=== PATIENT | male | born 1980 | race Caucasian/White ===

== ENCOUNTER 2016-09-20 23:41 | Observation (INO) | payer BC ==
[2016-09-21] MEDS ORDERED: Pepcid 20 MG VIAL IV ONE ×2 (00:09→00:58)
[2016-09-21] MEDS ORDERED: BENADRYL 50 MG/ML IV ONE (00:09)
[2016-09-21] MEDS ORDERED: Sodium Chloride 0.9% 1000 ML 1,000 ML IV STA (00:09)
[2016-09-21] MEDS ORDERED: Zofran 4 MG/2 ML VIAL IV ONE ×2 (00:09→08:00)
[2016-09-21] MEDS ORDERED: Hydromorphone 1 mg/ml Ampule IV ONE (00:09)
--- NOTE | 2016-09-21 00:09 | ERPHSYRPT ---
- History of Present Illness Time Seen by Provider: 09/21/16 00:06 Historian: patient Exam Limitations: no limitations Patient Subjective Stated Complaint: "i am having a gallbladder attack. i am suppose to have it removed at 10 in the morning. they told me i couldn't take my pain medication. normally it has let up by now. it started at 9 tonight." Triage Nursing Assessment: aox3, breathing face, holding side upper side, skin pale, cool, dry, steady gait, unable to sit still Physician History: pt is scheduled for keon this am but had attack which did not go away; very tender at RUQ Timing/Duration: today Activities at Onset: none Quality: sharpness, stabbing Abdominal Pain Onset Location: RUQ Pain Radiation: no radiation Severity of Pain-Max: severe Severity of Pain-Current: severe Modifying Factors: Improves With: nothing Associated Symptoms: back, nausea Previous symptoms: different symptoms, recently treated Allergies/Adverse Reactions: No Known Drug Allergies Allergy (Verified 09/20/16 23:50) Home Medications: Levothyroxine Sodium 1 tab DAILY 07/28/16 [History] Naproxen Sodium 500 mg PO DAILY 08/29/16 [History] Hx Tetanus, Diphtheria Vaccination/Date Given: Yes Hx Influenza Vaccination/Date Given: No Hx Pneumococcal Vaccination/Date Given: No - Review of Systems Constitutional: No Fever, No Chills Eyes: No Symptoms Ears, Nose, & Throat: No Symptoms Respiratory: No Cough, No Dyspnea Cardiac: No Chest Pain, No Edema, No Syncope Abdominal/Gastrointestinal: Abdominal Pain, Nausea, No Vomiting, No Diarrhea Genitourinary Symptoms: No Dysuria Musculoskeletal: No Back Pain, No Neck Pain Skin: No Rash Neurological: No Dizziness, No Focal Weakness, No Sensory Changes Psychological: No Symptoms Endocrine: No Symptoms All Other Systems: Reviewed and Negative - Past Medical History Pertinent Past Medical History: Yes Neurological History: No Pertinent History ENT History: No Pertinent History Cardiac History: No Pertinent History Respiratory History: No Pertinent History Endocrine Medical History: Hypothyroidism Musculoskeletal History: No Pertinent History GI Medical History: No Pertinent History History: No Pertinent History Psycho-Social History: No Pertinent History Male Reproductive Disorders: No Pertinent History - Past Surgical History Past Surgical History: Yes Neuro Surgical History: No Pertinent History Cardiac: No Pertinent History Respiratory: No Pertinent History Gastrointestinal: No Pertinent History Genitourinary: No Pertinent History Musculoskeletal: Other Male Surgical History: No Pertinent History Other Surgical History: carpal tunnel right wrist,and right elbow unlar nerve relocation. - Social History Smoking Status: Former smoker Exposure to second hand smoke: No Drug Use: none Patient Lives Alone: No - Nursing Vital Signs Nursing Vital Signs: Initial Vital Signs Temperature 97.5 F Temperature Source Oral Pulse Rate 79 Respiratory Rate 18 Blood Pressure [Right Arm] 131/70 Pain Intensity 2 - Physical Exam General Appearance: moderate distress, alert Eye Exam: PERRL/EOMI, eyes nml inspection Ears, Nose, Throat Exam: normal ENT inspection, pharynx normal, moist mucous membranes Neck Exam: normal inspection, non-tender, supple, full range of motion Respiratory Exam: normal breath sounds, lungs clear, No respiratory distress Cardiovascular Exam: regular rate/rhythm, normal heart sounds Gastrointestinal/Abdomen Exam: soft, tenderness, rebound, No mass Rectal Exam: deferred Back Exam: normal inspection, normal range of motion, No CVA tenderness, No vertebral tenderness Extremity Exam: normal inspection, normal range of motion, pelvis stable Neurologic Exam: alert, oriented x 3, cooperative, normal mood/affect, nml cerebellar function, sensation nml, No motor deficits Skin Exam: normal color, warm, dry SpO2: 100 Oxygen Delivery: Room Air - Course Nursing assessment & vital signs reviewed: Yes EKG Interpreted by Me: Sinus Rhythm, NORMAL AXIS, NORMAL INTERVALS, NORMAL QRS, Non-specific ST Changes Ordered Tests: Active Orders 24 hr Category Date Time Status Clean Catch Urine Specimen STAT Care 09/21/16 00:09 Active EKG-ER Only STAT Care 09/21/16 00:09 Active IV Insertion STAT Care 09/21/16 00:09 Active NPO (ED) STAT Care 09/21/16 00:09 Active ABDOMEN AND PELVIS W/0 CONTRAS [CT] Stat Exams 09/21/16 00:09 Ordered AMYLASE Stat Lab 09/21/16 00:20 Completed CBC W DIFF Stat Lab 09/21/16 00:20 Completed CMP Stat Lab 09/21/16 00:20 Completed LIPASE Stat Lab 09/21/16 00:20 Completed Lactic Acid Urgent Lab 09/21/16 00:21 Completed TROPONIN Stat Lab 09/21/16 00:20 Completed UA W/ MICROSCOPIC Stat Lab 09/21/16 01:40 Completed Medication Summary Discontinued Medications Generic Name Dose Route Start Last Admin Trade Name Freq PRN Reason Stop Dose Admin Diphenhydramine HCl 25 mg 09/21/16 00:09 09/21/16 01:11 Benadryl 50 Mg/Ml IV 09/21/16 00:10 25 mg STAT ONE Administration Famotidine 20 mg 09/21/16 00:09 09/21/16 01:04 Pepcid 20 Mg Vial IV 09/21/16 00:10 20 mg STAT ONE Administration Famotidine Confirm 09/21/16 00:58 Pepcid 20 Mg Vial Administered 09/21/16 00:59 Dose 20 mg IV .STK-MED ONE Hydromorphone HCl 1 mg 09/21/16 00:09 09/21/16 01:04 Hydromorphone 1 Mg/Ml Ampule IV 09/21/16 00:10 1 mg STAT ONE Administration Hydromorphone HCl Confirm 09/21/16 00:58 Hydromorphone 1 Mg/Ml Ampule Administered 09/21/16 00:59 Dose 1 mg .ROUTE .STK-MED ONE Sodium Chloride 1,000 mls @ 999 mls/hr 09/21/16 00:09 09/21/16 01:03 Sodium Chloride 0.9% 1000 Ml IV 09/21/16 01:09 999 mls/hr .Q1H1M STA Administration Meropenem 1 g/ Sodium Chloride 100 mls @ 200 mls/hr 09/21/16 00:14 09/21/16 01:05 IV 09/21/16 00:43 200 mls/hr STAT ONE Administration Metronidazole 100 mls @ 100 mls/hr 09/21/16 00:15 09/21/16 01:05 Flagyl 500 Mg Ivpb IV 09/21/16 01:14 100 mls/hr STAT ONE Administration Sodium Chloride Confirm 09/21/16 00:58 Sodium Chloride 0.9% 100 Ml Ivpb Administered 09/21/16 00:59 Dose 100 mls @ ud IV .STK-MED ONE Sodium Chloride Confirm 09/21/16 00:58 Sodium Chloride 0.9% 1000 Ml Administered 09/21/16 00:59 Dose 1,000 mls @ ud .ROUTE .STK-MED ONE Metronidazole Confirm 09/21/16 00:59 Flagyl 500 Mg Ivpb Administered 09/21/16 01:00 Dose 100 mls @ ud IV .STK-MED ONE Meropenem Confirm 09/21/16 00:58 Merrem 1 Gm Administered 09/21/16 00:59 Dose 1 g IV .STK-MED ONE Ondansetron HCl 4 mg 09/21/16 00:09 09/21/16 01:04 Zofran 4 Mg/2 Ml Vial IV 09/21/16 00:10 4 mg STAT ONE Administration Ondansetron HCl Confirm 09/21/16 00:58 Zofran 4 Mg/2 Ml Vial Administered 09/21/16 00:59 Dose 4 mg .ROUTE .STK-MED ONE Lab/Rad Data: Laboratory Result Diagrams 09/21/16 00:20 09/21/16 00:20 Laboratory Results 09/21/16 09/21/16 09/21/16 Range/Units 01:40 00:21 00:20 WBC (4.0-10.5) K/mm3 RBC (4.1-5.6) M/mm3 Hgb (12.5-18.0) gm/dl Hct (42-50) % MCV (78-100) fl MCH (26-32) pg MCHC (32-36) g/dl RDW (11.5-14.0) % Plt Count (150-450) K/mm3 MPV (6-9.5) fl Gran % (36.0-66.0) % Lymphocytes % (24.0-44.0) % Monocytes % (0.0-12.0) % Eosinophils % (0.00-5.0) % Basophils % (0.0-0.4) % Basophils # (0-0.4) Sodium 142 (136-145) mEq/L Potassium 3.7 (3.5-5.1) mEq/L Chloride 103 (98-107) mEq/L Carbon Dioxide 24.3 (21-32) mEq/L Anion Gap 17.9 H (5-15) MEQ/L BUN 27 H (9-20) mg/dL Creatinine 1.49 H (0.55-1.30) mg/dl Estimated GFR 56 ML/MIN Glucose 127 H (70-110) MG/DL Lactic Acid 3.1 H (0.4-2.0) Calcium 9.3 (8.5-10.1) mg/dL Total Bilirubin 0.4 (0.2-1.0) mg/dL AST 27 (15-37) U/L ALT 35 (12-78) U/L Alkaline Phosphatase 75 (46-116) U/L Troponin I < 0.017 (0.000-0.056) ng/ml Serum Total Protein 7.8 (6.4-8.2) gm/dL Albumin 4.4 (3.4-5.0) g/dL Amylase 71 (25-115) U/L Lipase 150 (73-393) U/L Ur Collection Type VOID Urine Color YELLOW (YELLOW) Urine Appearance CLEAR (CLEAR) Urine pH 7.5 (5-6) Ur Specific [place] 1.015 (1.005-1.025) Urine Protein 100 (Negative) Urine Glucose (UA) NEGATIVE (NEGATIVE) mg/dL Urine Ketones SMALL-15 (NEGATIVE) Urine Nitrite NEGATIVE (NEGATIVE) Urine Bilirubin NEGATIVE (NEGATIVE) Urine Urobilinogen 1 (0-1) mg/dL Urine WBC (Auto) NEGATIVE (NEGATIVE) Urine RBC (Auto) NEGATIVE (0-5) [place] Urine Microscopic RBC 2-5 (0-2) /HPF Urine Microscopic WBC 2-5 (0-5) /HPF Ur Epithelial Cells FEW (FEW) /HPF Urine Bacteria MODERATE (NEGATIVE) /HPF Urine Mucus MODERATE (NEGATIVE) /HPF Specimen Received 09/21/16 0140 09/21/16 Range/Units 00:20 WBC 12.9 H (4.0-10.5) K/mm3 RBC 5.32 (4.1-5.6) M/mm3 Hgb 16.4 (12.5-18.0) gm/dl Hct 45.9 (42-50) % MCV 86.3 (78-100) fl MCH 30.8 (26-32) pg MCHC 35.7 (32-36) g/dl RDW 12.8 (11.5-14.0) % Plt Count 270 (150-450) K/mm3 MPV 10.8 H (6-9.5) fl Gran % 83.2 H (36.0-66.0) % Lymphocytes % 11.7 L (24.0-44.0) % Monocytes % 4.0 (0.0-12.0) % Eosinophils % 0.9 (0.00-5.0) % Basophils % 0.2 (0.0-0.4) % Basophils # 0.02 (0-0.4) Sodium (136-145) mEq/L Potassium (3.5-5.1) mEq/L Chloride (98-107) mEq/L Carbon Dioxide (21-32) mEq/L Anion Gap (5-15) MEQ/L BUN (9-20) mg/dL Creatinine (0.55-1.30) mg/dl Estimated GFR ML/MIN Glucose (70-110) MG/DL Lactic Acid (0.4-2.0) Calcium (8.5-10.1) mg/dL Total Bilirubin (0.2-1.0) mg/dL AST (15-37) U/L ALT (12-78) U/L Alkaline Phosphatase (46-116) U/L Troponin I (0.000-0.056) ng/ml Serum Total Protein (6.4-8.2) gm/dL Albumin (3.4-5.0) g/dL Amylase (25-115) U/L Lipase (73-393) U/L Ur Collection Type Urine Color (YELLOW) Urine Appearance (CLEAR) Urine pH (5-6) Ur Specific [place] (1.005-1.025) Urine Protein (Negative) Urine Glucose (UA) (NEGATIVE) mg/dL Urine Ketones (NEGATIVE) Urine Nitrite (NEGATIVE) Urine Bilirubin (NEGATIVE) Urine Urobilinogen (0-1) mg/dL Urine WBC (Auto) (NEGATIVE) Urine RBC (Auto) (0-5) [place] Urine Microscopic RBC (0-2) /HPF Urine Microscopic WBC (0-5) /HPF Ur Epithelial Cells (FEW) /HPF Urine Bacteria (NEGATIVE) /HPF Urine Mucus (NEGATIVE) /HPF Specimen Received - Progress Progress: improved, re-examined Progress Note: 09/21/16 02:22 discussed with Garrett Cassidy and Dr. Hodgson and pt and will place on obs with AB and prep for scheduled surgery in morning. Discussed with : Renee Will see patient in: hospital (observation) Counseled pt/family regarding: lab results, diagnosis, need for follow-up, rad results - Departure Time of Disposition: 02:23 Departure Disposition: Observation Clinical Impression: Gall bladder disease Condition: Good Critical Care Time: No
[2016-09-21] MEDS ORDERED: Merrem 1 GM 1 G in Sodium Chloride 100ML MINI-BAG PLUS 100 ML IV ONE (00:14)
[2016-09-21] MEDS ORDERED: FLAGYL 500 MG IVPB 100 ML IV ONE ×2 (00:15→00:59)
[2016-09-21 00:25] LABS: BASOPHIL % 0.2 % (0.0-0.4); Eosinophil % 0.9 % (0.00-5.0); Granulocytes % 83.2 % (36.0-66.0); Lymphocytes % 11.7 % (24.0-44.0); Mean Cell Volume 86.3 fl (78-100); Mean Corpuscular Hemoglobin 30.8 pg (26-32); Mean Platelet Volume 10.8 fl (6-9.5); Platelet Count 270 K/mm3 (150-450); Red Blood Count 5.32 M/mm3 (4.1-5.6); Red Cell Distribution Width 12.8 % (11.5-14.0); White Blood Count 12.9 K/mm3 (4.0-10.5)
[2016-09-21 00:46] LABS: ALBUMIN 4.4 g/dL (3.4-5.0); ALKALINE PHOSPHATASE 75 U/L (46-116); ANION GAP 17.9 MEQ/L (5-15); BILIRUBIN,TOTAL 0.4 mg/dL (0.2-1.0); BLOOD UREA NITROGEN 27 mg/dL (9-20); CHLORIDE 103 mEq/L (98-107); Carbon Dioxide 24.3 mEq/L (21-32); Glucose 127 MG/DL (70-110); LIPASE 150 U/L (73-393); Potassium 3.7 mEq/L (3.5-5.1); SGOT/AST 27 U/L (15-37); SGPT/ALT 35 U/L (12-78); SODIUM 142 mEq/L (136-145); Total Protein 7.8 gm/dL (6.4-8.2)
[2016-09-21 00:53] LABS: TROPONIN < 0.017 ng/ml (0.000-0.056)
[2016-09-21] MEDS ORDERED: Sodium Chloride 0.9% 1000 ML 1,000 ML ONE (00:58)
[2016-09-21] MEDS ORDERED: Hydromorphone 1 mg/ml Ampule ONE (00:58)
[2016-09-21] MEDS ORDERED: Merrem 1 GM IV ONE (00:58)
[2016-09-21] MEDS ORDERED: Zofran 4 MG/2 ML VIAL ONE (00:58)
[2016-09-21] MEDS ORDERED: Sodium Chloride 0.9% 100 ML IVPB 100 ML IV ONE (00:58)
[2016-09-21 01:58] LABS: Collection Type VOID
[2016-09-21 01:59] LABS: Bacteria MODERATE /HPF (NEGATIVE); COMPLETE URINE MICROSCOPIC? YES; Epithelial Cells FEW /HPF (FEW); Mucus MODERATE /HPF (NEGATIVE); Ph 7.5 (5-6)
[2016-09-21] MEDS ORDERED: Phenergan 25 MG INJ IM PRN (02:55)
[2016-09-21] MEDS ORDERED: Zofran 4 MG/2 ML VIAL IV PRN (02:55)
[2016-09-21] MEDS ORDERED: Sodium Chloride 0.9% 1000 ML 1,000 ML IV SCH (02:55)
[2016-09-21] MEDS ORDERED: DILAUDID 2 MG INJECTION IV PRN (02:55)
[2016-09-21] MEDS ORDERED: Sensorcaine 0.25% 10 ML ONE (06:53)
[2016-09-21] MEDS ORDERED: Lactated Ringers 1,000 ML IV ONE (06:53)
[2016-09-21] MEDS ORDERED: Quelicin Fliptop 200 MG/10 ML IV ONE (08:00)
[2016-09-21] MEDS ORDERED: BRIDION 200MG/2ML IV ONE (08:00)
[2016-09-21] MEDS ORDERED: SUBLIMAZE 100 MCG/2 ML IV ONE (08:00)
[2016-09-21] MEDS ORDERED: TORAdol 30 mg Injection IV ONE (08:00)
[2016-09-21] MEDS ORDERED: Decadron 4 MG INJ IV ONE (08:00)
[2016-09-21] MEDS ORDERED: Zemuron 100 MG/10 ML IV ONE (08:00)
[2016-09-21] MEDS ORDERED: DIPRIVAN 200 MG/20 ML IV ONE (08:00)
--- NOTE | 2016-09-21 08:09 | PCM.HP ---
History of Present Illness - Chief Complaint Chief Complaint: Gallbladder disease Date: 09/21/16 History of Present Illness: is a 35 year old male. with chronic cholecystitis with repeated flairs scheduled for cholecystectomy today but was instructed to not take his medication the night prior. he began with a typical attack last night around 9 pm that became more severe with vomiting and severe pain. He did not want to take any medication that would delay the surgery and thus came to the ED due to the severe pain. The pain has improved this am no vomiting he had normal bowel movement. - Review of Systems Constitutional: No Fever, No Chills Eyes: No Symptoms Ears, Nose, & Throat: No Symptoms Respiratory: No Cough, No Short Of Breath Cardiac: No Chest Pain, No Edema, No Syncope Abdominal/Gastrointestinal: Abdominal Pain, Nausea, Vomiting, No Diarrhea Genitourinary Symptoms: No Dysuria Musculoskeletal: No Back Pain, No Neck Pain Skin: No Rash Neurological: No Dizziness, No Focal Weakness, No Sensory Changes Psychological: No Symptoms Endocrine: No Symptoms Hematologic/Lymphatic: No Symptoms Immunological/Allergic: No Symptoms Medications & Allergies Home Medications: Home Medication List Hydrocodone/APAP 10/325 mg [[place] 10/325 MG Tablet] 1 tab PO Q4H PRN PRN # 15 tablet 07/28/16 [Rx Confirmed 09/20/16] Levothyroxine Sodium 1 tab PO DAILY 07/28/16 [History Confirmed 09/21/16] Naproxen Sodium 500 mg PO DAILY PRN PRN 08/29/16 [History Confirmed 09/21/16] Allergies/Adverse Reactions: Allergies Allergy/AdvReac Type Severity Reaction Status Date / Time No Known Drug Allergies Allergy Verified 09/20/16 23:50 - Past Medical History Past Medical History: Yes Neurological History: No Pertinent History ENT History: No Pertinent History Cardiac History: No Pertinent History Respiratory History: No Pertinent History Endocrine Medical History: Hypothyroidism Musculoskelatal History: No Pertinent History GI Medical History: Gallbladder Disease History: No Pertinent History Pyscho-Social History: No Pertinent History Male Reproductive Disorders: No Pertinent History - Past Surgical History Past Surgical History: Yes Neuro Surgical History: No Pertinent History Cardiac History: No Pertinent History Respiratory Surgery: No Pertinent History GI Surgical History: No Pertinent History Genitourinary Surgical Hx: No Pertinent History Musculskeletal Surgical Hx: Other Male Surgical History: No Pertinent History Other Surgical History: carpal tunnel right wrist,and right and left elbow ulnar nerve relocation. - Social History Smoking Status: Former smoker Exposure to second hand smoke: No Alcohol: Occasionally Drug Use: none - Physical Exam Vital Signs: Vital Signs - 24 hr Temp Pulse Resp BP Pulse Ox 09/21/16 07:37 98.6 F 81 20 115/67 97 09/21/16 04:00 97.7 F 76 18 137/62 97 09/21/16 03:18 97.7 F 76 18 137/62 97 09/21/16 02:24 100 09/21/16 01:53 79 18 131/70 100 09/21/16 01:24 86 18 137/70 100 09/20/16 23:45 97.5 F 87 22 159/110 100 General Appearance: no apparent distress, alert Neurologic Exam: alert, oriented x 3, cooperative, normal mood/affect, nml cerebellar function, nml station & gait, sensation nml, No motor deficits Eye Exam: PERRL/EOMI, eyes nml inspection Ears, Nose, Throat Exam: normal ENT inspection, TMs normal, pharynx normal, moist mucous membranes Neck Exam: normal inspection, non-tender, supple, full range of motion Respiratory Exam: normal breath sounds, lungs clear, No respiratory distress Cardiovascular Exam: regular rate/rhythm, normal heart sounds, normal peripheral pulses Gastrointestinal/Abdomen Exam: soft, normal bowel sounds, No tenderness, No mass Back Exam: normal inspection, normal range of motion, No CVA tenderness, No vertebral tenderness Extremity Exam: normal inspection, normal range of motion, pelvis stable Skin Exam: normal color, warm, dry, No rash Lymphatic Exam: No adenopathy Assessment/Plan (1) Acute and chronic cholecystitis Current Visit: Yes Status: Acute Assessment & Plan: surgery scheduled today with Dr. Merchant pending surgery could be discharged post op pending surgery recommendations. Code(s): K81.2 - ACUTE CHOLECYSTITIS WITH CHRONIC CHOLECYSTITIS (2) Hypothyroidism Current Visit: Yes Status: Chronic Code(s): E03.9 - HYPOTHYROIDISM, UNSPECIFIED (3) GERD (gastroesophageal reflux disease) Current Visit: Yes Status: Chronic Code(s): K21.9 - GASTRO-ESOPHAGEAL REFLUX DISEASE WITHOUT ESOPHAGITIS
[2016-09-21] MEDS ORDERED: Dextrose 5% -0.45 NaCl 1000 ML 1,000 ML IV SCH (08:15)
[2016-09-21] MEDS ORDERED: Lactated Ringers 1,000 ML IV SCH (08:30)
[2016-09-21] MEDS ORDERED: MEFOXIN 1 Gm/ D5W 50 Ml** 50 ML IV SCH (08:30)
[2016-09-21] MEDS ORDERED: MEFOXIN 2 GM PREMIX** 50 ML IV SCH (09:00)
[2016-09-21] MEDS: Unasyn 3GM / NaCl 100ML 100 ML IV SCH ×2 (09:10→16:22)
--- NOTE | 2016-09-21 09:47 | HP ---
PROCEDURE DATE: 09/21/16 HISTORY OF PRESENT ILLNESS: The patient is a 35 y/o with 4 attacks since the Wednesday after [place] of right upper quadrant radiating to his back, dry heaves, nausea, and some emesis. No specific food trigger. No jaundice. No change in bowel movements. He does belch a lot. US - No stones. High ejection fraction of 17%. It was felt he had symptomatic biliary dyskinesia, probably chronic cholecystitis. PAST MEDICAL HISTORY: Some hypothyroidism. Had some arthritis and some reflux. CURRENT MEDICATIONS: Levothyroxine, Naprosyn, he had taken some Vicodin, he was taking some Prilosec, but it wasn't helping much. ALLERGIES: NKDA. PAST SURGICAL HISTORY: He has had right wrist surgery, right and left elbow surgery in the past. FAMILY HISTORY: Breast cancer. His mother and grandfather had some sort of cancer as well as heart disease. SOCIAL HISTORY: No smoking or alcohol abuse currently. REVIEW OF SYSTEMS: 10 systems reviewed per admission assessment. No chest pain or palpitations. Other systems negative or noncontributory other than above and per preadmission questionnaire. PHYSICAL EXAMINATION: GENERAL: No acute distress. HEENT: Sclerae nonicteric. NECK: No JVD. CHEST: Clear to auscultation. CVS: Regular rate and rhythm. ABDOMEN: Soft. Mild tenderness right upper quadrant. No peritoneal signs. EXTREMITIES: No significant edema. NEURO: Alert, moving extremities symmetrically. No gross motor deficits noted. IMPRESSION: 1. SYMPTOMATIC BILIARY DYSKINESIA, PROBABLE CHRONIC CHOLECYSTITIS. FELT THE PATIENT WOULD BENEFIT FROM CHOLECYSTECTOMY. Shown the gallbladder pamphlet and risk sheet and explained the procedure in detail, but not limited to, bleeding; infection; risk of trocar injury or hernia; small risk of bowel, bladder, or blood vessel injury; small risk of bile leak, bile duct injury, or retained stone or sludge possibly requiring further procedures either open or endoscopic retrograde cholangiopancreatography; general risk of anesthesia, deep vein thrombosis, pulmonary embolism, or pneumonia; perioperative risks of aches, pains, bloating, constipation and/or loose stools possibly chronic in nature; the possibility that the procedure may not improve his symptoms and he may need further work-up and/or testing, endoscopy, or other studies or procedures. He understands and agrees to the planned procedure. Will proceed with laparoscopic cholecystectomy, possible open as an outpatient.
[2016-09-21] MEDS ORDERED: LEVOTHYROXINE SODIUM PO SCH (10:00)
[2016-09-21] MEDS ORDERED: Pepcid 20 MG VIAL IV SCH (10:00)
[2016-09-21] MEDS ORDERED: SYNTHROID 25 MCG PO SCH (10:00)
[2016-09-21] MEDS ORDERED: SYNTHROID 112 MCG PO SCH (10:00)
[2016-09-21] MEDS ORDERED: DILAUDID 2 MG INJECTION ONE (15:01)
[2016-09-21] MEDS ORDERED: SUBLIMAZE 100 MCG/2 ML ONE (15:14)
--- NOTE | 2016-09-21 15:39 | OP ---
SURGERY DATE: 09/21/16 SURGERY TIME: 1405 PREOPERATIVE DIAGNOSIS: 1. SYMPTOMATIC BILIARY DYSKINESIA, CHRONIC CHOLECYSTITIS. ON INITIAL REPORT, IT HAS HIS US DID NOT SHOW CHOLELITHIASIS. POSTOPERATIVE DIAGNOSIS: 1. HE DID HAVE CHOLELITHIASIS, CHRONIC CHOLECYSTITIS. PROCEDURE: 1. Laparoscopic cholecystectomy. SURGEON: Dr. Justin Merchant. ANESTHESIA: General. ESTIMATED BLOOD LOSS: Minimal. INDICATIONS: As noted above. Risks and benefits explained in detail, but not limited to. Consent obtained. DESCRIPTION OF PROCEDURE AND FINDINGS: The patient was taken to the OR. General anesthesia was induced. The abdomen was prepped and draped in the usual sterile fashion. After official time-out, no disagreement in planned procedure. Transverse incision made at the supraumbilical area. Fascia grasped and pulled upward. Veress needle inserted. Tested with saline. Pneumoperitoneum accomplished insufflating from an opening pressure of 0-15. 11 mm bladeless port and camera were inserted without difficulty followed by two 5 mm right upper quadrant ports and a 5 mm epigastric port. The gallbladder was grasped. It was edematous. Had chronic inflammation. Slowly, carefully, dissected from posterolateral to anterior fashion. The main cystic artery was isolated and clipped directed on the gallbladder wall. Clipped X 3. The cystic duct/infundibular junction was slowly, carefully well skeletonized so the critical view was obtained both anteriorly and posteriorly. Once this was accomplished, the cystic duct was clipped divided in the usual fashion. A couple other oozing side branches off the cystic artery were isolated directly on the gallbladder wall and clipped as necessary. The gallbladder was slowly, carefully dissected free from its edematous, almost concrete attachments to the liver bed staying directly on the gallbladder wall slowly, carefully dissecting it free. Just prior to releasing the final attachments to the anterior edge of the liver, the liver bed reinspected. Clips noted to be in placed in the cystic duct/cystic artery stumps. There were no signs of any active bleeding or bile leakage. It was felt there was no benefit of drain placement at this point. At this point, the gallbladder was released from its final attachments to the anterior edge of the liver. Was pulled up in the epigastric wound and decompressed of bile. It should be noted there actually was a medium sized stone. This was carefully freed and passed off. The gallbladder decompressed of bile and then carefully mobilized upward and mobilized out and passed off. The 10-11 fascial defects closed with puncture closure device under direct vision with the camera and #1 Vicryl. A copious amount of irrigation accomplished lateral to the liver. The liver bed reinspected. Clips noted to be in place in cystic duct/cystic artery stumps. There were no signs of any active bleeding or bile leakage. It was felt there was no benefit of drain placement at this point. Pneumoperitoneum decompressed. Wounds irrigated out. Skin incision closed with 4-0 Vicryl. Steri-strips and sterile dressing applied. The patient tolerated the procedure well. Findings were discussed with the family out in the waiting area.
[2016-09-21] MEDS ORDERED: BENADRYL 50 MG/ML ONE (15:40)
[2016-09-21] MEDS ORDERED: NORCO 5/325 MG PO PRN (17:12)
[2016-09-21] MEDS ORDERED: MORPHINE SULFATE 4 MG INJ IV PRN (17:12)
[2016-09-21 19:33] VITALS: BP 136/73; PULSE 73; O2SAT 98
== END 2016-09-21 19:10 | disposition home or self-care (01) ==
LOC: ED 23:41 → MED SURG 09-21 02:46
PROVIDERS: ADMIT Family Medicine; ATTEND Family Medicine
PROC: 0FT44ZZ Resection of Gallbladder, Percutaneous Endoscopic Approach (ICD-10-PCS; principal; 2016-09-21)
DX: K80.10 Calculus of gallbladder with chronic cholecystitis without obstruction (principal); E03.9 Hypothyroidism, unspecified; M19.90 Unspecified osteoarthritis, unspecified site; K21.9 Gastro-esophageal reflux disease without esophagitis; Z79.899 Other long term (current) drug therapy
CPT/HCPCS: 00790; 36000; 36415; 80053; 81000; 82150; 83605; 83690; 84484; 85025; 88304; 93005; 93268; 96360; 96361; 96374; 96375; 99284; 99285; G0378; J0295; J0330; J0694; J1100; J1170; J1200; J1885; J2405; J2704; J3010

== ENCOUNTER 2024-03-03 04:50 | Emergency (ER) | payer BC ==
[2024-03-03] MEDS ORDERED: Sterile H2O 10 ml IJ ONE ×2 (04:54→05:53)
[2024-03-03] MEDS ORDERED: solu-MEDROL ONE ×2 (04:54→05:53)
[2024-03-03] MEDS: solu-MEDROL IV ONE (04:58)
[2024-03-03] MEDS ORDERED: BENADRYL 50 MG/ML ONE (05:03)
[2024-03-03] MEDS ORDERED: Pepcid 20 MG VIAL IV ONE (05:03)
[2024-03-03 05:04] VITALS: TEMP 97.6
[2024-03-03] MEDS: Pepcid 20 MG VIAL IV ONE (05:09)
[2024-03-03] MEDS: BENADRYL 50 MG/ML IV ONE (05:10)
--- NOTE | 2024-03-03 05:22 | ERPHSYRPT ---
- History of Present Illness Time Seen by Provider: 03/03/24 05:00 Source: patient, family Exam Limitations: no limitations Patient Subjective Stated Complaint: patient woke up with swollen uvula from his sleep about 20 mins prior to arrival Triage Nursing Assessment: pt ambulatory to bed by self, pt drooling, pt presents with swollen uvula that is resting on his tongue. pt able to speak and o2 saturations 98-99% Physician History: This is a 43-year-old obese white male who was brought to the emergency department by the patient's spouse. Patient was asleep and then woke up approximately 20 minutes prior to arrival because of tickle in the back of throat and coughing and gagging and noticed his uvula was very enlarged and edematous. Patient arrives with room air oxygen saturation level of 98 to 99%. There is no wheezing or stridor present. He has never had any like this before. He has no chest pain. Patient has a history of hypothyroidism and gastroesophageal reflux disease. He is a former smoker of cigarettes. Timing/Duration: abrupt onset Severity: moderate ENT Location: throat (Uvula) Prearrival Treatment: no prearrival treatment Modifying Factors: Improves With: coughing, other (Following makes the patient gag) Associated Symptoms: drooling, other (Gagging with mild cough) Allergies/Adverse Reactions: No Known Drug Allergies Allergy (Verified 03/03/24 04:54) Home Medications: Levothyroxine Sodium 1 tab PO DAILY 03/03/24 [History] Hx Tetanus, Diphtheria Vaccination/Date Given: Yes Hx Influenza Vaccination/Date Given: No Hx Pneumococcal Vaccination/Date Given: No Travel Risk - International Travel Have you traveled outside of the country in past 3 weeks: No - Emerging Infectious Disease Are you exhibiting symptoms associated with any current EIDs: No - Review of Systems Constitutional: No Symptoms Eyes: No Symptoms Ears, Nose, & Throat: Other (Enlarged swollen uvula) Respiratory: Cough, No Stridor, No Wheezing Cardiac: No Symptoms Abdominal/Gastrointestinal: No Symptoms Genitourinary Symptoms: No Symptoms Musculoskeletal: No Symptoms Skin: No Symptoms Neurological: No Symptoms Psychological: No Symptoms Endocrine: No Symptoms Hematologic/Lymphatic: No Symptoms Immunological/Allergic: No Symptoms All Other Systems: Reviewed and Negative - Past Medical History Pertinent Past Medical History: Yes Neurological History: No Pertinent History ENT History: No Pertinent History Cardiac History: No Pertinent History Respiratory History: No Pertinent History Endocrine Medical History: Hypothyroidism Musculoskeletal History: No Pertinent History GI Medical History: Gallbladder Disease History: No Pertinent History Psycho-Social History: No Pertinent History Male Reproductive Disorders: No Pertinent History Other Medical History: GALLBLADDER REMOVED. - Past Surgical History Past Surgical History: Yes Neuro Surgical History: No Pertinent History Cardiac: No Pertinent History Respiratory: No Pertinent History Gastrointestinal: Cholecystectomy Genitourinary: No Pertinent History Musculoskeletal: Other Male Surgical History: No Pertinent History Other Surgical History: carpal tunnel right wrist,and right and left elbow ulnar nerve relocation. - Social History Smoking Status: Former smoker Exposure to second hand smoke: No Drug Use: none Patient Lives Alone: No - Social Determinants of Health Will the patient participate in the screening: Yes Do you worry about a steady place to live?: No Do you have any problems with any of the following?: Pest (bugs,ants,or mice) In the past 12 months,have you had to go without utilities?: No Transportation Issues: No Has anyone in your support network made you feel unsafe?: No Have you or anyone in your house had to go without enough: No - Nursing Vital Signs Nursing Vital Signs: Initial Vital Signs Temperature 97.6 F 03/03/24 04:58 Pulse Rate 89 03/03/24 04:58 Respiratory Rate 18 03/03/24 04:58 Blood Pressure 153/116 03/03/24 04:58 O2 Sat by Pulse Oximetry 99 03/03/24 04:58 Pain Scale Pain Intensity 0 - Physical Exam General Appearance: mild distress, alert, anxiety, obese Eye Exam: bilateral eye: normal inspection, PERRL, EOMI Ear Exam: bilateral ear: auricle normal Nasal Exam: normal inspection Throat Exam: moist mucus membranes, uvula swelling Neck Exam: normal inspection, non-tender, supple, full range of motion, trachea midline Cardiovascular/Respiratory Exam: chest non-tender, normal breath sounds, regular rate/rhythm, heart sounds normal, no ecchymosis, no JVD, no M/R/G, no respiratory distress, No subcutaneous emphysema Abdominal Exam: non-tender Neurologic Exam: alert, oriented x 3, cooperative, 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 tested, normal mood/affect, nml cerebellar function, nml station & gait, sensation nml Skin Exam: normal color, warm, dry SpO2 Interpretation: normal SpO2: 99 O2 Delivery: Room Air - Course Nursing assessment & vital signs reviewed: Yes Ordered Tests: Medication Summary Discontinued Medications Generic Name Dose Route Start Last Admin Trade Name Elvin PRN Reason Stop Dose Admin Methylprednisolone Sodium 0 mg 03/03/24 05:49 03/03/24 05:55 Succinate 125 mg/ Sterile IV 03/03/24 05:50 125 mg Water 2 ml STAT ONE Administration Diphenhydramine HCl 50 mg 03/03/24 05:03 03/03/24 05:10 Diphenhydramine Hcl 50 Mg/Ml Vial IV 03/03/24 05:04 50 mg STAT ONE Administration Diphenhydramine HCl Confirm 03/03/24 05:03 Diphenhydramine Hcl 50 Mg/Ml Vial Administered 03/03/24 05:04 Dose 50 mg .ROUTE .STK-MED ONE Famotidine 40 mg 03/03/24 05:04 03/03/24 05:09 Famotidine 20 Mg/1 Vial IV 03/03/24 05:05 40 mg STAT ONE Administration Famotidine Confirm 03/03/24 05:03 Famotidine 20 Mg/1 Vial Administered 03/03/24 05:04 Dose 40 mg IV .STK-MED ONE Methylprednisolone Sodium Succinate Confirm 03/03/24 04:54 Methylprednis Sod Succ 125 Mg/2 Ml Vial Administered 03/03/24 04:55 Dose 125 mg .ROUTE .STK-MED ONE Methylprednisolone Sodium Succinate 125 mg 03/03/24 04:57 03/03/24 04:58 Methylprednis Sod Succ 125 Mg/2 Ml Vial IV 03/03/24 04:58 125 mg STAT ONE Administration Methylprednisolone Sodium Succinate Confirm 03/03/24 05:53 Methylprednis Sod Succ 125 Mg/2 Ml Vial Administered 03/03/24 05:54 Dose 125 mg .ROUTE .STK-MED ONE Sterile Water Confirm 03/03/24 04:54 Water For Injection,Sterile 10 Ml Vial Administered 03/03/24 04:55 Dose 10 ml IJ .STK-MED ONE Sterile Water Confirm 03/03/24 05:53 Water For Injection,Sterile 10 Ml Vial Administered 03/03/24 05:54 Dose 10 ml IJ .STK-MED ONE - Progress Progress: improved, re-examined Progress Note: 03/03/24 05:21 My medical decision making and the assignment of low complexity to this patient's medical issue today is based on review of the patient's past medical history, review the patient's medication list, review of patient drug allergy list, history present illness and physical findings on examination. This patient's workup does not require laboratory radiographic studies. We did place an intravenous line and provide the patient with 125 mg of Solu-Medrol intravenously, 40 mg of intravenous Pepcid, and 50 mg of intravenous Benadryl. 03/03/24 06:07 Reassessment reveals the patient to be speaking more clearly. There is edema still present on the uvula but it is improving slowly. We did provide him with a second dose of 125 mg of intravenous Solu-Medrol. We will continue to observe. 03/03/24 06:44 Reassessment of this patient shows that the swelling is improving and patient, clinically states he is able to speak more clearly and swallowing better. We will now order viral swabs and group A strep swab since the patient is symptomatically better. 03/03/24 06:45 I will transfer care of this patient to Dr. Mireles at shift change ([address]. Mireles will follow-up with the study results and make final disposition. Counseled pt/family regarding: diagnosis, need for follow-up Medical Desision Making - Independent Historian Additional History obtained from: Spouse - Diagnostic Testing Diagnostic test were ordered, analyzed, and reviewed by me: No - Risk of complications The pt has a mod risk of morbidity or mortality based on: Need for prescription drug management - Departure Departure Disposition: Home Clinical Impression: Uvulitis Condition: Stable Critical Care Time: No Referrals: ELIANA ROMANO DO [Primary Care Provider] - Follow up/PCP as directed Additional Instructions: Drink plenty of cool clear liquids. Take your medications as prescribed. Re turn to the emergency department if your symptoms worsen. Continue Benadryl 25 mg orally 3 times a day for 5 days. Prescriptions: Prednisone 10 mg [Deltasone 10 mg] 10 mg PO TID #12 tablet Famotidine 20 mg [Pepcid 20 MG] 20 mg PO DAILY #10 tablet
[2024-03-03] MEDS: solu-MEDROL 125 MG, Sterile H2O 10 ml 2 ML IV ONE (05:55)
[2024-03-03 06:47] VITALS: RESP 17
[2024-03-03 06:48] VITALS: O2SAT 99
[2024-03-03 07:37] LABS: INFLUENZA A NEGATIVE (NEGATIVE); INFLUENZA B NEGATIVE (NEGATIVE); RESPIRATORY SYNCTIAL VIRUS NEGATIVE (NEGATIVE); SARS-CoV-2 Xpert Express NEGATIVE (NEGATIVE)
[2024-03-03 08:20] VITALS: BP 133/93; PULSE 60
== END 2024-03-03 08:26 | disposition home or self-care (01) ==
LOC: ED 04:50
DX: K12.2 Cellulitis and abscess of mouth (principal); Z79.52 Long term (current) use of systemic steroids; Z79.899 Other long term (current) drug therapy; Z59.19 Other inadequate housing
CPT/HCPCS: 0241U; 87651; 96374; 96375; 99284; J1200; J2919